=== PATIENT | female | born 1955 | race Caucasian/White ===

== ENCOUNTER 2018-09-06 06:23 | Day surgery (SDC) | payer OTHER ==
[2018-09-06] MEDS ORDERED: SOD CHLORIDE 0.9% 1,000 ML IV (07:00)
[2018-09-06] MEDS: DICLOFENAC 0.1% 2.5 ML OPH OPER (07:12)
[2018-09-06] MEDS: CYCLOPENTOLATE/PHENYLEPH 2 ML OPH OPER (07:12)
[2018-09-06] MEDS: TROPICAMIDE 1% 15 ML OPH OPER (07:12)
[2018-09-06] MEDS: MOXIFLOXACIN 0.5% 3 ML OPH OPER (07:13)
[2018-09-06] MEDS ORDERED: ONDANSETRON 4 MG INJ IV (07:30)
[2018-09-06] MEDS ORDERED: OXYCODONE/ACETAMINOPHEN (5/325) TAB PO ×2 (07:30)
[2018-09-06] MEDS ORDERED: LABETALOL HCL 20MG INJ IV (07:30)
[2018-09-06] MEDS ORDERED: FENTAnyl 50 MCG/ML VIAL IV ×2 (07:30)
[2018-09-06] MEDS ORDERED: hydrALAzine 20 MG INJ IV (07:30)
[2018-09-06] MEDS ORDERED: FENTAnyl 50 MCG/ML VIAL ×2 (08:03→08:50)
[2018-09-06] MEDS ORDERED: PROPOFOL 20 ML (08:03)
[2018-09-06] MEDS ORDERED: GENTAMICIN 80 MG INJ (08:18)
[2018-09-06] MEDS ORDERED: CEFAZOLIN 1 GM INJ (08:18)
[2018-09-06] MEDS ORDERED: MIDAZOLAM 1 MG/ML 2 ML INJ (08:52)
[2018-09-06] MEDS: CARBACHOL 0.01% 1.5 ML OPH INJ (09:07)
[2018-09-06] MEDS: DEXAMETHASONE 4 MG/ML 1 ML INJ (09:07)
[2018-09-06] MEDS: NA HYALURONATE/CHONDROITIN 0.5 ML SYG (09:08)
[2018-09-06] MEDS: LIDOCAINE 4% (MPF) 5 ML INJ (09:08)
[2018-09-06] MEDS: TETRACAINE 0.5% 4 ML OPH (09:08)
[2018-09-06] MEDS: FENTAnyl 50 MCG/ML VIAL IV (09:46)
== END 2018-09-06 10:33 | disposition home or self-care (01) ==
LOC: SDS 06:23
DX: H25.041 Posterior subcapsular polar age-related cataract, right eye (principal); I10 Essential (primary) hypertension; Z87.891 Personal history of nicotine dependence; R73.03 Prediabetes
CPT/HCPCS: 66984